=== PATIENT | male | born 1980 | race Hispanic/Latino ===

== ENCOUNTER 2017-04-09 18:00 | Emergency (ER) | payer OTHER ==
[2017-04-09 18:17] VITALS: BP 134/90; PULSE 61; RESP 16; TEMP 98.5; O2SAT 99
[2017-04-09 18:18] VITALS: BMI 24.3
--- NOTE | 2017-04-09 19:19 | ED PDOC ---
HPI: Head Injury Time Seen by Provider: 04/09/17 18:32 Chief Complaint (Nursing): Headache Chief Complaint (Provider): i fell on sunday History Per: Patient History/Exam Limitations: no limitations Injury Occurred (Timing): Days Ago: (2) Onset/Duration Of Symptoms: Sudden Onset Patient States: Fell Striking Head Severity: Moderate Loss Of Consciousness: Yes Additional Complaint(s): 36yo male states was in [place], had some drinks sunday night, fell asleep " on his arms at a counter" and fell, friends found him and accompanied him to bedroom, in morning he was amnestic to all events. Since then has had some mild posterior head pressure and doesnt feel himself. Went to urgent care and recommended ED visit for head injury. Past Medical History Reviewed: Historical Data, Nursing Documentation, Vital Signs Vital Signs: Last Vital Signs Temp 98.5 F 04/09/17 18:16 Pulse 61 04/09/17 18:16 Resp 16 04/09/17 18:16 BP 134/90 04/09/17 18:16 Pulse Ox 99 04/09/17 18:16 - Medical History PMH: No Chronic Diseases - Family History Family History: States: Unknown Family Hx - Social History Alcohol: Occasional - Home Medications Home Medications: Ambulatory Orders Medication Instructions Recorded Naproxen [Naprosyn] 500 mg PO BID PRN #14 tablet 04/09/17 Ondansetron [Zofran] 4 mg PO Q6H PRN #10 tab 04/09/17 - Allergies Allergies/Adverse Reactions: Allergies Allergy/AdvReac Type Severity Reaction Status Date / Time Penicillins Allergy REDNESS Verified 04/09/17 18:25 Review of Systems ROS Statement: Except As Marked, All Systems Reviewed And Found Negative Constitutional: Negative for: Fever, Chills ENT: Negative for: Ear Discharge, Nose Discharge Cardiovascular: Negative for: Chest Pain, Palpitations Respiratory: Negative for: Cough, Shortness of Breath Gastrointestinal: Negative for: Nausea, Vomiting, Abdominal Pain Genitourinary Male: Negative for: Dysuria, Frequency Musculoskeletal: Negative for: Neck Pain, Shoulder Pain Skin: Negative for: Rash, Lesions Neurological: Positive for: Headache, Dizziness. Negative for: Weakness, Numbness, Incoordination, Change in Speech, Confusion, Seizures, Altered Mental Status Psych: Negative for: Anxiety, Depression Physical Exam - Reviewed Nursing Documentation Reviewed: Yes Vital Signs Reviewed: Yes - Physical Exam Appears: Positive for: Well, Non-toxic, No Acute Distress Head Exam: Positive for: NORMAL INSPECTION, NORMOCEPHALIC. Negative for: ATRAUMATIC (+ scalp contusion upper occipital scalp w skull tenderness) Skin: Positive for: Normal Color, Warm, DRY Eye Exam: Positive for: EOMI, PERRL, Other (small 2mm subconjctival hemorrhage R lateral sclera, no hyphema, nontender periorbital rim). Negative for: Scleral icterus ENT: Positive for: Normal ENT Inspection Neck: Positive for: Normal, Painless ROM. Negative for: Pain On Movement Of Neck Cardiovascular/Chest: Positive for: Regular Rate, Rhythm Respiratory: Positive for: CNT, Normal Breath Sounds Extremity: Positive for: Normal ROM Neurologic/Psych: Positive for: Alert, valve lapper II-XII (intact'), Oriented, Mood/ Affect (anxious but good insight), Cerebellar Tests (coordination grossly intact ). Negative for: Motor/Sensory Deficits, Aphasia, Facial Droop - ECG O2 Sat by Pulse Oximetry: 99 Medical Decision Making Medical Decision Making: Discussed risks/benefits of CT imaging, given persistent symptoms obtain CT imaging r/o ICH. CLINICAL HISTORY: 36 years old, male; Injury or trauma; Fall; Initial encounter; Concussion / head injury; Consciousness not specified; Injury date: 04-07-2017; Additional info: Head injury persistent headache. Sent phy. Doc. TECHNIQUE: Axial computed tomography images of the head/brain without intravenous contrast. All CT scans at this facility use one or more dose reduction techniques, viz.: automated exposure control; ma/kV adjustment per patient size (including targeted exams where dose is matched to indication; i.e. head); or iterative reconstruction technique. Coronal and sagittal reformatted images were created and reviewed. COMPARISON: No relevant prior studies available. FINDINGS: Brain: Unremarkable. No hemorrhage. No significant white matter disease. No edema. Ventricles: Unremarkable. No ventriculomegaly. Bones/joints: Unremarkable. No acute fracture. Soft tissues: Unremarkable. Sinuses: Unremarkable as visualized. No acute sinusitis. Mastoid air cells: Unremarkable as visualized. No mastoid effusion. IMPRESSION: No acute intracranial pathology. Thank you for allowing us to participate in the care of your patient. Dictated and Authenticated by: Gael Anaya MD 04/09/2017 7:45 PM Eastern Time ([place] & [place]) Patient with intact short term memory, normal gait and cognition grossly intact on re-eval. DC from ED w head injury instructions. Followup PMD/ neurology. Disposition - Clinical Impression Clinical Impression: Concussion - Patient ED Disposition Is Patient to be Admitted: No Counseled Patient/Family Regarding: Studies Performed, Diagnosis, Need For Followup - Disposition Disposition: Routine/Home Disposition Time: 20:15 Condition: STABLE Additional Instructions: Avoid athletics, head injury or alcohol for at least 2 weeks after all symptoms resolve. Prescriptions: Naproxen [Naprosyn] 500 mg PO BID PRN #14 tablet PRN Reason: Pain, Moderate (4-7) Ondansetron [Zofran] 4 mg PO Q6H PRN #10 tab PRN Reason: Nausea/Vomiting Instructions: Concussion (ED), Head Injury (ED) Forms: Recurve (Upper Sorbian)
--- NOTE | 2017-04-10 08:23 | CT ---
PROCEDURE: CT HEAD WITHOUT CONTRAST. HISTORY: head injury persistent headache COMPARISON: None available. TECHNIQUE: Axial computed tomography images were obtained through the head/brain without intravenous contrast. Radiation dose: Total exam DLP = 1120.99 mGy-cm. This CT exam was performed using one or more of the following dose reduction techniques: Automated exposure control, adjustment of the mA and/or kV according to patient size, and/or use of iterative reconstruction technique. FINDINGS: HEMORRHAGE: No intracranial hemorrhage. BRAIN: Matter differentiation is preserved. There is no mass, mass effect or abnormal extra-axial collection. There is no territorial infarction. VENTRICLES: The ventricles are normal in size, shape and configuration. CALVARIUM: The skull base and calvarium are normal. PARANASAL SINUSES: Predominantly clear. MASTOID AIR CELLS: Predominantly clear. OTHER FINDINGS: None. IMPRESSION: No acute intracranial abnormality. A preliminary report was provided by [employer].
== END 2017-04-09 20:50 | disposition home or self-care (01) ==
LOC: H.ER 18:00
DX: S06.0X0A Concussion without loss of consciousness, initial encounter (principal); W19.XXXA Unspecified fall, initial encounter; Y92.89 Other specified places as the place of occurrence of the external cause; Z88.0 Allergy status to penicillin